=== PATIENT | female | born 1995 | race Caucasian/White ===

== ENCOUNTER 2016-09-20 17:40 | Emergency (ER) | payer MEDICAID ==
[~2016-09-20 17:40] MED LIST: ABILIFY5 MG; ALBUTEROL2.5 MG/0.1 IH; AMBIEN10 MG PO; ATIVAN2 MG PO; BENADRYL ALLERG25 M1 PO; BUSPAR10 MG PO; BUSPAR5 MG; CYCLOBENZAPRINE10 M1 PO; DEPAKOTE250 M1 PO; DEPAKOTE500 M1 PO; DOXYCYCLINE HY100 M3 PO; DOXYCYCLINE HY100 M5 PO; EFFEXOR100 MG PO; FLAGYL500 M1 PO; GABAPENTIN; HYDROXYZINE HCL25 MG PO; IBUPROFEN600 M1 PO; LITHIUM CARBON300 M1 PO; Lamictal PO; MACROBID 100 M100 M1 PO; NICOTINE GUM4 MG BC; NICOTINE PATCH1 EAC2 TD; NO CURRENT MEDS; NORCO 5-325 TA1 EACH PO; PERCOCET 5-3251 EACH PO; PREDNISONE10 M1 PO; PROMETHAZINE HC25 M3 PO; PYRIDIUM200 M2 PO; REMERON15 MG; REQUIP1 M1 PO; RISPERDAL0.25 M2 PO; SEROQUEL200 M2 PO; SINGULAIR10 MG; SINGULAIR10 MG PO; SOMA250 M1 PO; TRAMADOL HCL50 M2 PO; TRAZODONE HCL100 M1 PO; TRAZODONE HCL100 MG; TUSSIN COUGH15 MG; ULTRAM50 M1 PO; VENTOLIN HFA18 G2 INH; VIBRAMYCIN100 M1 PO; VISTARIL50 M1 PO; VISTARIL50 MG PO; VRAYLAR1.5 MG PO; WELLBUTRIN PO; ZOFRAN ODT4 MG PO; [UNRECOGNIZED DRUG - REMARK]
[2016-09-20] MEDS ORDERED: IBUPROFEN800 M1 PO (17:50)
[2016-09-20] MEDS ORDERED: CYCLOBENZAPRINE5 M1 (17:50)
[2016-09-20] MEDS ORDERED: TRILEPTAL150 M2 PO (17:51)
[2016-09-20] MEDS ORDERED: VISTARIL25 M1 PO (17:51)
[2016-09-20] MEDS ORDERED: CYPROHEPTADINE H4 M1 PO (17:51)
[2016-09-20] MEDS ORDERED: NORCO 5-325 TA1 EACH PO (19:52)
== END 2016-09-20 20:29 ==
LOC: EDMED 17:40
DX: S39.012A Strain of muscle, fascia and tendon of lower back, initial encounter (principal); Z87.81 Personal history of (healed) traumatic fracture; X50.1XXA Overexertion from prolonged static or awkward postures, initial encounter; Y93.89 Activity, other specified; Y99.8 Other external cause status